=== PATIENT | female | born 1985 | race Caucasian/White ===

== ENCOUNTER 2017-08-21 17:06 | Emergency (ER) | payer SELFPAY ==
[~2017-08-21] VITALS: Ht 162.6 cm; Wt 54.5 kg
[2017-08-21 17:07] VITALS: BP 114/61; PULSE 105; RESP 16; TEMP 98.5; O2SAT 98
[2017-08-21 18:23] LABS: BACTERIA, URINE RARE /hpf; BILIRUBIN, URINE NEG (NEG); BLOOD, URINE NEG (NEG); GLUCOSE,URINE NEG (NEG); KETONE, URINE NEG (NEG); NITRITE,URINE NEG (NEG); SQUAMOUS EPITHELIAL CELL URINE 14 /hpf (0-5); URINE COLOR YELLOW (YELLW/STRAW); URINE LEUKOCYTE ESTERASE LARGE (NEG)
[2017-08-21 18:58] LABS: AUTOMATED NEUTROPHIL # 2.9 TH/MM3 (1.8-7.7); BASOPHIL # 0.1 TH/MM3 (0-0.2); BASOPHIL % 1.1 % (0.0-2.0); EOSINOPHIL # 0.6 TH/MM3 (0-0.4); EOSINOPHIL % 10.1 % (0.0-4.0); HEMATOCRIT 42.2 % (35.0-46.0); HEMOGLOBIN 15.2 GM/DL (11.6-15.3); LYMPH % 31.5 % (9.0-44.0); MEAN CELL VOLUME 89.5 FL (80.0-100.0); MEAN CORPUSCULAR HEMOGLOBIN 32.2 PG (27.0-34.0); MEAN PLATELET VOLUME 8.2 FL (7.0-11.0); MONOCYTE # 0.6 TH/MM3 (0-0.9); NEUT % 47.3 % (16.0-70.0); PLATELET COUNT 198 TH/MM3 (150-450); RED BLOOD COUNT 4.72 MIL/MM3 (4.00-5.30); RED CELL DISTRIBUTION WIDTH 13.3 % (11.6-17.2); WHITE BLOOD COUNT 6.2 TH/MM3 (4.0-11.0)
--- NOTE | 2017-08-21 19:06 | RADRPT ---
EXAM DATE/TIME: 08/21/2017 18:54 [place] COMPARISON: No previous studies available for comparison. INDICATIONS : Bilateral flank pain for one week. ORAL CONTRAST: No oral contrast ingested. RADIATION DOSE: 6.77 CTDIvol (mGy) MEDICAL HISTORY : Renal calculi. SURGICAL HISTORY : None. ENCOUNTER: Initial ACUITY: 1 week PAIN SCALE: 8/10 LOCATION: Bilateral flank region. TECHNIQUE: Volumetric scanning of the abdomen and pelvis was performed. Using automated exposure control and ad justment of the mA and/or kV according to patient size, radiation dose was kept as low as reasonably achievable to obtain optimal diagnostic quality images. DICOM format image data is available electro nically for review and comparison. FINDINGS: LOWER LUNGS: The visualized lower lungs are clear. LIVER: Homogeneous density without lesion. There is no dilation of the biliary tree. No calcified gallston es. SPLEEN: Normal size without lesion. PANCREAS: Within normal limits. KIDNEYS: Normal in size and shape. There is no mass, stone, or hydronephrosis. ADRENAL GLANDS: Within normal limits. VASCULAR: There is no aortic aneurysm. BOWEL/MESENTERY: The stomach, small bowel, and colon demonstrate no acute abnormality. There is no free intraperitone al air or fluid. ABDOMINAL WALL: Within normal limits. RETROPERITONEUM: There is no lymphadenopathy. BLADDER: No wall thickening or mass. REPRODUCTIVE: Within normal limits. INGUINAL: There is no lymphadenopathy or hernia. MUSCULOSKELETAL: Within normal limits for patient age. CONCLUSION: No acute disease. Sandip Rajan MD on August 21, 2017 at 19:02 Board Certified Radiologist. This report was verified electronically.
[2017-08-21 19:08] LABS: ALBUMIN 4.7 GM/DL (3.4-5.0); AST (GOT) 26 U/L (15-37); BICARBONATE 30.1 MEQ/L (21.0-32.0); BLOOD UREA NITROGEN 9 MG/DL (7-18); CHLORIDE 104 MEQ/L (98-107); CREATININE 0.84 MG/DL (0.50-1.00); GLOMERULAR FILTRATION RATE 79 ML/MIN (>89); GLUCOSE,RANDOM 77 MG/DL (74-106); SODIUM (NA) 138 MEQ/L (136-145)
[2017-08-21 19:09] LABS: ALT (GPT) 21 U/L (10-53)
[2017-08-21 19:11] LABS: ALKALINE PHOSPHATASE 77 U/L (45-117); TOTAL BILIRUBIN ADULT 0.2 MG/DL (0.2-1.0); TOTAL PROTEIN 9.4 GM/DL (6.4-8.2)
--- NOTE | 2017-08-21 22:07 | PD ---
Physical Exam Date Seen by Provider: Aug 21, 2017 Time Seen by Provider: 19:08 Narrative 32 year old presents to the emergency department for evaluation of bilateral flank pain for the past week. She reports hx of kidney stones and this feels similar. Data Data Last Documented VS Vital Signs Date Time Temp Pulse Resp B/P (MAP) Pulse Ox O2 Delivery O2 Flow Rate FiO2 08/21/17 17:07 98.5 105 16 114/61 (78) 98 Orders Orders Complete Blood Count With Diff (08/21/17 17:19) Comprehensive Metabolic Panel (08/21/17 17:19) Urinalysis - C+S If Indicated (08/21/17 17:19) Ed Urine Pregnancytest Poc (08/21/17 17:19) Ct Abd/Pel W/O Iv Contrast (08/21/17 17:19) Labs Laboratory Tests Test 08/21/17 17:45 08/21/17 18:23 Urine Color YELLOW Urine Turbidity HAZY Urine pH 8.0 Urine Specific [place] 1.012 Urine Protein NEG mg/dL Urine Glucose (UA) NEG mg/dL Urine Ketones NEG mg/dL Urine Occult Blood NEG Urine Nitrite NEG Urine Bilirubin NEG Urine Urobilinogen LESS THAN 2.0 MG/DL Urine Leukocyte Esterase LARGE Urine RBC 3 /hpf Urine WBC 5 /hpf Urine Squamous Epithelial Cells 14 /hpf Urine Bacteria RARE /hpf Microscopic Urinalysis Comment CULT NOT INDICATED White Blood Count 6.2 TH/MM3 Red Blood Count 4.72 MIL/MM3 Hemoglobin 15.2 GM/DL Hematocrit 42.2 % Mean Corpuscular Volume 89.5 FL Mean Corpuscular Hemoglobin 32.2 PG Mean Corpuscular Hemoglobin Concent 36.0 % Red Cell Distribution Width 13.3 % Platelet Count 198 TH/MM3 Mean Platelet Volume 8.2 FL Neutrophils (%) (Auto) 47.3 % Lymphocytes (%) (Auto) 31.5 % Monocytes (%) (Auto) 10.0 % Eosinophils (%) (Auto) 10.1 % Basophils (%) (Auto) 1.1 % Neutrophils # (Auto) 2.9 TH/MM3 Lymphocytes # (Auto) 2.0 TH/MM3 Monocytes # (Auto) 0.6 TH/MM3 Eosinophils # (Auto) 0.6 TH/MM3 Basophils # (Auto) 0.1 TH/MM3 CBC Comment AUTO DIFF Differential Comment AUTO DIFF CONFIRMED Platelet Estimate NORMAL Platelet Morphology Comment NORMAL Red Cell Morphology Comment NORMAL Blood Urea Nitrogen 9 MG/DL Creatinine 0.84 MG/DL Random Glucose 77 MG/DL Total Protein 9.4 GM/DL Albumin 4.7 GM/DL Calcium Level 10.0 MG/DL Alkaline Phosphatase 77 U/L Aspartate Amino Transf (AST/SGOT) 26 U/L Alanine Aminotransferase (ALT/SGPT) 21 U/L Total Bilirubin 0.2 MG/DL Sodium Level 138 MEQ/L Potassium Level 4.4 MEQ/L Chloride Level 104 MEQ/L Carbon Dioxide Level 30.1 MEQ/L Anion Gap 4 MEQ/L Estimat Glomerular Filtration Rate 79 ML/MIN [facility] Supervised Visit with HAMLET: No Narrative Course 32 year old female presents to the emergency department for evaluation of bilateral flank pain. Patient is initially seen in triage and work up is initiated. Patient left AMA before she could be placed in a medical bed. Diagnosis Primary Impression: Left against medical advice Disposition: 07 AGAINST MEDICAL ADVICE Sonia García Aug 21, 2017 22:07
== END 2017-08-21 19:08 | disposition left against medical advice (07) ==
LOC: NED 17:06
DX: R10.9 Unspecified abdominal pain (principal)
CPT/HCPCS: 74176; 80053; 81001; 84703; 85025; 99284

== ENCOUNTER 2017-08-21 20:31 | Emergency (ER) | payer SELFPAY ==
[~2017-08-21] VITALS: Ht 162.6 cm; Wt 54.5 kg
[2017-08-21 20:32] VITALS: BP 96/64; PULSE 86; RESP 16; TEMP 98.2; O2SAT 100
--- NOTE | 2017-08-21 21:26 | PD ---
HPI Chief Complaint: Flank/Kidney Pain Time Seen by Provider: 21:26 Travel History International Travel<30 days: No Contact w/Intl Traveler<30days: No Traveled to known affect area: No History of Present Illness HPI 32-year-old female presents to the emergency department for evaluation of bilateral flank pain. She states that she always has this but has gotten significantly worse over last 4-5 days. Patient denies any urinary symptoms. No nausea vomiting. States the pain is an 8 out of 10, constant, sharp, stabbing. She reports recently moving here not having any primary care provider to follow-up with. She denies any fever or chills. She denies any injury. She denies any exacerbating or alleviating factors. She has no other symptoms to report. [facility] Past Medical History Medical History: Denies Significant Hx ?: Not Social History Alcohol Use: Yes Tobacco Use: Yes Allergies-Medications (Allergen,Severity, Reaction): Coded Allergies: azithromycin (Verified Allergy, Unknown, 08/21/17) Review of Systems Except as stated in HPI: all other systems reviewed are Neg Physical Exam Narrative GENERAL: Well-nourished female patient, in no acute distress. SKIN: Focused skin assessment warm/dry. HEAD: Atraumatic. Normocephalic. EYES: Pupils equal and round. No scleral icterus. No injection or drainage. ENT: No nasal bleeding or discharge. Mucous membranes pink and moist. NECK: Trachea midline. No JVD. CARDIOVASCULAR: Regular rate and rhythm. No murmur appreciated. RESPIRATORY: No accessory muscle use. Clear to auscultation. Breath sounds equal bilaterally. GASTROINTESTINAL: Abdomen soft, non-tender, nondistended. No guarding or rebound tenderness. Hepatic and splenic margins not palpable. MUSCULOSKELETAL: No obvious deformities. No clubbing. No cyanosis. No edema. No CVA tenderness. NEUROLOGICAL: Awake and alert. No obvious cranial nerve deficits. Motor grossly within normal limits. Normal speech. PSYCHIATRIC: Appropriate mood and affect; insight and judgment normal. Data Data Last Documented VS Vital Signs Date Time Temp Pulse Resp B/P (MAP) Pulse Ox O2 Delivery O2 Flow Rate FiO2 08/21/17 20:32 98.2 86 16 96/64 (75) 100 Room Air Orders Orders Ketorolac Inj (Toradol Inj) (08/21/17 21:30) Ed Discharge Order (08/21/17 21:31) [facility] Medical Decision Making Medical Screen Exam Complete: Yes Emergency Medical Condition: Yes Medical Record Reviewed: Yes Differential Diagnosis Renal calculi versus UTI versus renal colic Narrative Course 32-year-old female presents to emergency department for evaluation of bilateral flank pain. Physical exam is reassuring. Lab work and CT imaging were complete on the visit today where patient left AGAINST MEDICAL ADVICE. They have been reviewed and are without acute concern. Vital Signs Date Time Temp Pulse Resp B/P (MAP) Pulse Ox O2 Delivery O2 Flow Rate FiO2 08/21/17 20:32 98.2 86 16 96/64 (75) 100 Room Air These of been reviewed with patient. I have discussed her with my attending. Patient will be discharged home at this time. She does not want any pain control. She verbalizes relief and knowing that "everything was okay today." Diagnosis Primary Impression: Bilateral flank pain Referrals: Primary Care Physician Patient Instructions: Flank Pain (ED), General Instructions Departure Forms: Tests/Procedures, Work Release Enter return to work date: Aug 23, 2017 Additional Instructions: Maintain adequate oral hydration Follow-up with a primary care provider Tylenol or ibuprofen as directed on the package as needed for pain Return immediately with any acute worsening of symptoms Med/Other Pt SpecificInfo: No Change to Meds Disposition: 01 DISCHARGE HOME Condition: Stable Aracelis Phillips Aug 21, 2017 21:26
[2017-08-21] MEDS ORDERED: KETOROLAC TROMETHAMINE 60 MG/2 ML (IM) VIAL IM ONE (21:30)
== END 2017-08-21 21:40 | disposition home or self-care (01) ==
LOC: NEPD 20:31
DX: R10.9 Unspecified abdominal pain (principal); Z72.0 Tobacco use; Z88.8 Allergy status to other drugs, medicaments and biological substances
CPT/HCPCS: 96372; 99282